=== PATIENT | male | born 1935 | race Caucasian/White ===

== ENCOUNTER → 2017-01-21 | Outpatient (CLI) | payer OTHER ==
[~2017-01-21] MED LIST: B COTAB PO; BENA10TA10 PO; CALC-354 PO; COEN1CAP46 PO; OMEG10007 PO
[2017-01-21 12:20] LABS: BASO ABS # 0.07 K/uL (0-0.2); COMPLETE YES; EOS % 3.9 %; HEMATOCRIT 38.2 % (42-52); IG% 0.1 %; LYMPH % 30.9 %; LYMPH ABS # 2.12 K/uL (1.2-3.4); MEAN CELL VOLUME 91.6 fL (80-100); MEAN CORPUSCULAR HEMOGLOBIN 31.7 pg (25-34); MEAN CORPUSCULAR HGB CONC 34.6 g/dl (32-36); MEAN PLATELET VOLUME 10.1 fL (7.4-10.4); MONO % 12.5 %; NEUT % 51.6 %; PLATELET COUNT 272 K/uL (130-400); RED BLOOD COUNT 4.17 M/uL (4.7-6.1); WHITE BLOOD COUNT 6.86 K/uL (4.8-10.8)
[2017-01-21 12:56] LABS: ESTIMATED AVERAGE GLUCOSE 123 mg/dl; HA1C FLAG Normal (Normal)
[2017-01-21 13:34] LABS: ALKALINE PHOSPHATASE 74 U/L (45-117); ALT/SGPT 22 U/L (12-78); AST/SGOT 15 U/L (15-37); BLOOD UREA NITROGEN 21 mg/dl (7-18); BUN/CREATININE RATIO 15.8 (10-20); CALCIUM 8.9 mg/dl (8.5-10.1); CARBON DIOXIDE 28 mmol/L (21-32); CHLORIDE 95 mmol/L (98-107); GLUCOSE 100 mg/dl (70-99); POTASSIUM 4.3 mmol/L (3.5-5.1); SODIUM 133 mmol/L (136-145)
== END | disposition home or self-care (01) ==
LOC: C.LABPVFM 08:02
PROVIDERS: ATTEND Family Medicine
DX: I10 Essential (primary) hypertension (principal); R73.01 Impaired fasting glucose; F41.9 Anxiety disorder, unspecified

== ENCOUNTER → 2017-09-18 | Outpatient (CLI) | payer OTHER ==
[2017-09-18 13:17] LABS: BLOOD UREA NITROGEN 21 mg/dl (7-18); BUN/CREATININE RATIO 15.6 (10-20); CALCIUM 8.9 mg/dl (8.5-10.1); CARBON DIOXIDE 26 mmol/L (21-32); CHLORIDE 91 mmol/L (98-107); CREATININE 1.37 mg/dl (0.60-1.40); GLUCOSE 171 mg/dl (70-99); POTASSIUM 3.7 mmol/L (3.5-5.1); SODIUM 127 mmol/L (136-145)
== END | disposition home or self-care (01) ==
LOC: C.LABPVFM 08:27
PROVIDERS: ATTEND Family Medicine Adult Medicine
DX: F41.1 Generalized anxiety disorder (principal); I10 Essential (primary) hypertension

== ENCOUNTER 2017-10-22 05:14 | Emergency (ER) | payer OTHER ==
[~2017-10-22] VITALS: Ht 175.3 cm; Wt 63.0 kg
[2017-10-22 05:17] VITALS: TEMP 36.5; Ht 175.3 cm; Wt 63.0 kg
[2017-10-22] MEDS ORDERED: hydrOXYzine HCL 25 MG TAB PO STA (05:34)
[2017-10-22 05:59] LABS: BASO % 1.3 %; BASO ABS # 0.09 K/uL (0-0.2); COMPLETE YES; EOS % 1.3 %; HEMATOCRIT 40.5 % (42-52); IG% 0.3 %; LYMPH % 29.5 %; LYMPH ABS # 2.05 K/uL (1.2-3.4); MEAN CELL VOLUME 93.1 fL (80-100); MEAN CORPUSCULAR HEMOGLOBIN 32.9 pg (25-34); MEAN CORPUSCULAR HGB CONC 35.3 g/dl (32-36); MONO % 6.9 %; NEUT % 60.7 %; PLATELET COUNT 280 K/uL (130-400); RED BLOOD COUNT 4.35 M/uL (4.7-6.1); WHITE BLOOD COUNT 6.95 K/uL (4.8-10.8)
[2017-10-22] MEDS ORDERED: AMLO-114 PO (06:07)
[2017-10-22] MEDS ORDERED: BUSP15TA70 PO (06:07)
[2017-10-22] MEDS ORDERED: BENA1TAB53 PO (06:07)
[2017-10-22] MEDS ORDERED: HYG/25 PO (06:07)
[2017-10-22] MEDS ORDERED: MIRT15TA PO (06:07)
[2017-10-22 06:27] LABS: BUN/CREATININE RATIO 15.4 (10-20); CALCIUM 8.8 mg/dl (8.5-10.1); CREATININE 1.24 mg/dl (0.60-1.40); MAGNESIUM 2.5 mg/dl (1.8-2.4); POTASSIUM 3.7 mmol/L (3.5-5.1)
[2017-10-22 06:38] LABS: CKMB/CK RATIO 1.7 (0-3.0); THYROID STIMULATING HORMONE 3.18 uIu/ml (0.300-4.500)
[2017-10-22 06:46] LABS: MANUAL MICROSCOPIC REQUIRED? NO; URINE APPEARANCE CLEAR (CLEAR); URINE BILIRUBIN NEG (NEG); URINE COLOR YELLOW; URINE NITRITE NEG (NEG); UROBILINOGEN NEG (NEG)
[2017-10-22] MEDS ORDERED: HYDR1CAP85 PO (06:50)
[2017-10-22 07:00] LABS: REVIEW REQ? NO
--- NOTE | 2017-10-22 07:04 | EMERGENCY ROOM VISIT NOTE ---
History Report prepared by Juanita: Joselin Mccauley Under the Supervision of: Dr. Genna Maciel M.D. First contact with patient: 05:24 Chief Complaint: ANXIETY Stated Complaint: ANXIETY, HEART RACES History of Present Illness The patient is an 82 year old male who presents to the Emergency Room with complaints of an episode of anxiety starting 5.5 hours ago. The patient states that he has had panic attacks since he was 14 years old. He reports that tonight he was awoken from his sleep with one. He states that he felt like his heart was racing and it wouldn't slow down. He notes that he was unable to fall back asleep from it. He states that he felt like his heart was beating regularly , but he is unsure. He denies measuring how fast it was beating. He notes it felt like previous panic attacks that he has had. He states that he just tried to relax, but found it difficult to do so. He notes that he has been seen for this before and that he does take two medications for his anxiety. He states that the one he has been taking for as long as he can remember. He reports that the new medication he is taking he started 5 weeks ago. He states that he has a follow up appointment for being on the new medication next week. The patient states that he has been scared to have a panic attack and has been worrying about that recently. He notes that his panic attacks have become more frequent recently and he feels that his medications are not working. The patient denies cough, cold, fever, chest pain, ever being a smoker, and ever seeing a psychiatrist. Source of History: patient Onset: 5.5 hours ago Position: other (global) Quality: other (global) Timing: other (episode) Associated Symptoms: No fevers, No cough, No chest pain Note: The patient complains of his heart feeling like it was racing. The patient denies having a cold. Review of Systems See HPI for pertinent positives & negatives. A total of 10 systems reviewed and were otherwise negative. Past Medical & Surgical Medical Problems: (1) Anxiety (2) HTN (hypertension) (3) Kidney disease (4) Panic attacks Family History Heart disease Hypertension Lung disease Social History Smoking Status: Never Smoker Smokeless Tobacco Use: No Alcohol Use: none Drug Use: none Marital Status: Housing Status: lives with significant other Current/Historical Medications Scheduled Amlodipine (Norvasc), 10 MG PO DAILY Benazepril (Lotensin), 40 MG PO BID Buspirone Hcl (Buspar), 15 MG PO BID Chlorthalidone (Hygroton), 25 MG PO DAILY Hydroxyzine Pamoate (Vistaril), 25 MG PO Q8 Mirtazapine (Remeron), 15 MG PO HS Allergies Coded Allergies: Penicillins (Verified Allergy, Unknown, RASH, 10/22/17) Physical Exam Vital Signs Date Time Temp Pulse Resp B/P (MAP) Pulse Ox O2 Delivery O2 Flow Rate FiO2 10/22/17 06:23 75 16 169/81 98 Room Air 10/22/17 05:50 69 10/22/17 05:17 36.5 89 18 167/79 99 Room Air Physical Exam Vital signs reviewed. General: Anxious-appearing, in no significant distress. HEENT: No scleral icterus, PERRLA, neck supple. Atraumatic. Cardiovascular: Regular rate and rhythm, no extra sounds. Pulmonary: Clear to auscultation bilaterally, normal work of breathing. Abdomen: Soft, nontender, nondistended, positive bowel sounds. Musculoskeletal: Atraumatic, no peripheral edema. Neurologic: Patient awake alert and oriented x 3, full strength in all 4 extremities. Cranial nerves 2 through 12 grossly intact. Skin: Warm, dry, no rash Psych: No SI, no HI Medical Decision & Procedures Laboratory Results 10/22/17 05:48 Red Blood Count 4.35, Mean Corpuscular Volume 93.1, Mean Corpuscular Hemoglobin 32.9, Mean Corpuscular Hemoglobin Concent 35.3, Mean Platelet Volume 9.0, Neutrophils (%) (Auto) 60.7, Lymphocytes (%) (Auto) 29.5, Monocytes (%) (Auto) 6.9, Eosinophils (%) (Auto) 1.3, Basophils (%) (Auto) 1.3, Neutrophils # (Auto) 4.22, Lymphocytes # (Auto) 2.05, Monocytes # (Auto) 0.48, Eosinophils # (Auto) 0.09, Basophils # (Auto) 0.09 10/22/17 05:48 Test 10/22/17 05:47 10/22/17 05:48 10/22/17 06:30 Bedside Troponin I < 0.030 ng/ml (0-0.045) White Blood Count 6.95 K/uL (4.8-10.8) Red Blood Count 4.35 M/uL (4.7-6.1) Hemoglobin 14.3 g/dL (14.0-18.0) Hematocrit 40.5 % (42-52) Mean Corpuscular Volume 93.1 fL (80-100) Mean Corpuscular Hemoglobin 32.9 pg (25-34) Mean Corpuscular Hemoglobin Concent 35.3 g/dl (32-36) Platelet Count 280 K/uL (130-400) Mean Platelet Volume 9.0 fL (7.4-10.4) Neutrophils (%) (Auto) 60.7 % Lymphocytes (%) (Auto) 29.5 % Monocytes (%) (Auto) 6.9 % Eosinophils (%) (Auto) 1.3 % Basophils (%) (Auto) 1.3 % Neutrophils # (Auto) 4.22 K/uL (1.4-6.5) Lymphocytes # (Auto) 2.05 K/uL (1.2-3.4) Monocytes # (Auto) 0.48 K/uL (0.11-0.59) Eosinophils # (Auto) 0.09 K/uL (0-0.5) Basophils # (Auto) 0.09 K/uL (0-0.2) RDW Standard Deviation 46.2 fL (36.4-46.3) RDW Coefficient of Variation 13.4 % (11.5-14.5) Immature Granulocyte % (Auto) 0.3 % Immature Granulocyte # (Auto) 0.02 K/uL (0.00-0.02) Anion Gap 9.0 mmol/L (3-11) Est Creatinine Clear Calc Drug Dose 41.6 ml/min Estimated GFR () 62.8 Estimated GFR (Non- 54.2 BUN/Creatinine Ratio 15.4 (10-20) Calcium Level 8.8 mg/dl (8.5-10.1) Magnesium Level 2.5 mg/dl (1.8-2.4) Total Bilirubin 0.6 mg/dl (0.2-1) Direct Bilirubin 0.1 mg/dl (0-0.2) Aspartate Amino Transf (AST/SGOT) 17 U/L (15-37) Alanine Aminotransferase (ALT/SGPT) 25 U/L (12-78) Alkaline Phosphatase 84 U/L (45-117) Total Creatine Kinase 129 U/L (39-308) Creatine Kinase MB 2.2 ng/ml (0.5-3.6) Creatine Kinase MB Ratio 1.7 (0-3.0) Total Protein 7.8 gm/dl (6.4-8.2) Albumin 4.0 gm/dl (3.4-5.0) Thyroid Stimulating Hormone (TSH) 3.180 uIu/ml (0.300-4.500) Laboratory results per my review. Medications Administered Medications (Trade) Dose Ordered Sig/Damaris Route Start Time Stop Time Status Last Admin Dose Admin Hydroxyzine HCl (Vistaril Tab) 25 mg NOW STAT PO 10/22/17 05:34 10/22/17 05:35 DC 10/22/17 05:40 25 MG Procedure CHEST X-RAY: The results were interpreted by me. No pneumothorax. No focal lung consolidation. No failure. ECG Indication: other (heart racing) Rate (beats per minute): 76 Rhythm: sinus rhythm Findings: PAC, RBBB (with repolarization abnormality) Comparison ECG Date: August 16, 2014 Change: no significant change ED Course 0528: Past medical records reviewed. The patient was evaluated in room B6. A complete history and physical examination was performed. 0534: Ordered Vistaril Tab 25 mg PO. Medical Decision Etiologies such as premature contractions, electrolyte abnormality, cardiac dysrhythmia, thyroid dysfunction, pulmonary embolism, infection, gastrointestinal, as well as others were entertained. This patient was evaluated and appeared to be in no significant distress. IV access was obtained and laboratory work was drawn. The patient is medically stable. EKG reveals a right bundle-branch block which is persistent from previous. Chest x-ray is clear. Patient responded well to Vistaril 25 mg by mouth. The mental health nurse liaison evaluated the patient in the emergency department. He has no suicidal or homicidal ideation. He has no desire to be inpatient. I believe the patient is stable for outpatient follow-up. The patient will be contacted with an appointment for psychiatric evaluation by the [facility] nursing staff later today. He will be discharged with a prescription for Vistaril 25 mg every 8 hours as needed for anxiety. He will continue his other medications as prescribed. He was encouraged to keep his appointment with his PCP next week. Patient was discharged in care of his and will return to the ER for worsening of symptoms or any medical concerns. Medication Reconcilliation Current Medication List: was personally reviewed by me Impression Primary Impression: Anxiety Scribe Attestation The scribe's documentation has been prepared under my direction and personally reviewed by me in its entirety. I confirm that the note above accurately reflects all work, treatment, procedures, and medical decision making performed by me. Departure Information Prescriptions Hydroxyzine Pamoate (VISTARIL) 25 Mg Cap 25 MG PO Q8 for Anxiety, #30 CAP Prov: Genna Maciel M.D. 10/22/17 Referrals Damari Blackwell M.D. (PCP) Patient Instructions My [facility]
[2017-10-22 07:20] VITALS: BP 154/80; PULSE 65; O2SAT 98
--- NOTE | 2017-10-22 07:20 | DIAGNOSTIC IMAGING REPORT ---
CHEST ONE VIEW PORTABLE CLINICAL HISTORY: palpitations COMPARISON STUDY: 08/16/2014 FINDINGS: The cardiac and mediastinal contours are normal. There is no evidence of focal pulmonary consolidation. There is no evidence of failure. No pleural effusions are visualized.[ A rounded opacity within the left midlung zone is felt to represent a nipple shadow. IMPRESSION: No active disease in the chest. Electronically signed by: Humberto Islas M.D. 10/22/2017 7:18 AM Dictated Date/Time: 10/22/2017 7:18 AM
[2017-10-22 08:49] LABS: ZZUR CULT IF INDIC CLEAN CATCH NO
== END 2017-10-22 07:30 | disposition home or self-care (01) ==
LOC: C.EDB 05:15
DX: F41.9 Anxiety disorder, unspecified (principal); I45.10 Unspecified right bundle-branch block; I12.9 Hypertensive chronic kidney disease with stage 1 through stage 4 chronic kidney disease, or unspecified chronic kidney disease; N18.9 Chronic kidney disease, unspecified; Z79.899 Other long term (current) drug therapy; Z88.0 Allergy status to penicillin; Z82.49 Family history of ischemic heart disease and other diseases of the circulatory system

== ENCOUNTER → 2018-02-13 | Outpatient (CLI) | payer OTHER ==
[~2018-02-13] MED LIST changes: +AMLO-114 PO; -B COTAB PO; -BENA10TA10 PO; +BENA1TAB53 PO; +BUSP15TA70 PO; -CALC-354 PO; -COEN1CAP46 PO; +HYG/25 PO; +MIRT15TA PO; -OMEG10007 PO
== END | disposition home or self-care (01) ==
LOC: C.LAB1850 11:58
PROVIDERS: ATTEND Physician Assistant
DX: R21 Rash and other nonspecific skin eruption (principal)

== ENCOUNTER → 2018-02-27 | Outpatient (CLI) | payer OTHER ==
[2018-02-27 11:16] LABS: ALBUMIN 3.7 gm/dl (3.4-5.0); ALT/SGPT 27 U/L (12-78); BLOOD UREA NITROGEN 23 mg/dl (7-18); CALCIUM 8.6 mg/dl (8.5-10.1); CARBON DIOXIDE 29 mmol/L (21-32); CREATININE 1.28 mg/dl (0.60-1.40); GLUCOSE 98 mg/dl (70-99); POTASSIUM 4.6 mmol/L (3.5-5.1); SODIUM 131 mmol/L (136-145)
[2018-02-27 11:19] LABS: ALKALINE PHOSPHATASE 83 U/L (45-117); AST/SGOT 21 U/L (15-37)
== END | disposition home or self-care (01) ==
LOC: C.LAB1850 09:35
PROVIDERS: ATTEND Family Medicine
DX: R73.01 Impaired fasting glucose (principal)